=== PATIENT | female | born 1950 | race Caucasian/White ===

== ENCOUNTER 2016-12-31 10:01 | Day surgery (SDC) | payer OTHER ==
--- NOTE | ~2016-12-31 | EGD ---
EGD REPORT [facility] [address] [id number] NAME: NAUN KEY : [birth year] STATUS : REG [facility] [place] PAT#: [id number] AGE: 66 ADM/REG DATE : 12/31/16 MR#: [id number] REPORT SERV DATE: 12/31/16 DICTATED BY: MARÍA ROBLES DATE: 12/31/16 REPORT STATUS : Draft [facility] BY: [facility] DATE: 12/31/16 Endoscopy Center Patient Name: Naun Key Date of : 1950 Attending MD: MARÍA ROBLES MD Procedure Date No Time: 12/31/2016 Procedure: Colonoscopy Indications: Screening for colorectal malignant neoplasm Referring MD: Andrew Lucas Medicines: as per anesthesia Complications: No immediate complications. Procedure: Pre-Anesthesia Assessment: - ASA Grade Assessment: II - A patient with mild systemic disease. After I obtained informed consent, the scope was passed under direct vision. Throughout the procedure, the patient's blood pressure, pulse, and oxygen saturations were monitored continuously. The PCF [id number] was introduced through the anus and advanced to the cecum, identified by appendiceal orifice and ileocecal valve. The colonoscopy was performed without difficulty. The patient tolerated the procedure. The quality of the bowel preparation was adequate to identify polyps. Findings: The perianal and digital rectal examinations were normal. The colon (entire examined portion) appeared normal. Impression: - The entire examined colon is normal. Recommendation: - Repeat colonoscopy in 10 years for surveillance. Procedure Code(s): --- Professional --- 75391, Colonoscopy, flexible, proximal to splenic flexure; diagnostic, with or without collection of specimen(s) by brushing or washing, with or without colon decompression (separate procedure) Diagnosis Code(s): --- Professional --- Z12.11, Encounter for screening for malignant neoplasm of colon CPT copyright 2013 [employer]. All rights reserved. EGD REPORT [facility] [address] [address] NAME: NAUN KEY : [birth year] STATUS : REG [facility]#: [id number] AGE: 66 ADM/REG DATE : 12/31/16 MR#: [id number] REPORT SERV DATE: 12/31/16 DICTATED BY: MARÍA ROBLES. DATE: 12/31/16 REPORT STATUS : Draft TRANSCRIBED BY: [employer] DATE: 12/31/16 The codes documented in this report are preliminary and upon information coder review may be revised to meet current compliance requirements. MARÍA ROBLES MD 12/31/2016 11:49 AM This report has been signed electronically. Number of Addenda: 0 Note Initiated On: 12/31/2016 11:26 AM Scope Withdrawal Time 0 hours 6 minutes 54 seconds [address] [id number]
[~2016-12-31 10:01] MED LIST: ALLEGRA180 PO; CELEBREX2 PO; DIOVAN HCT320 MG/25 PO; FIBER; GYNODIOL0.5 MG PO; LOP25 PO; NORV10 PO; PREM625 PO; PRILO PO; PROZAC PO; ULTRAM50 PO
== END 2016-12-31 23:59 | disposition home or self-care (01) ==
LOC: DMU 10:01
PROVIDERS: Internal Medicine Gastroenterology
PROC: 0DJD8ZZ Inspection of Lower Intestinal Tract, Via Natural or Artificial Opening Endoscopic (ICD-10-PCS; principal; 2016-12-31 11:30)
DX: Z12.11 Encounter for screening for malignant neoplasm of colon (principal); I10 Essential (primary) hypertension; M19.90 Unspecified osteoarthritis, unspecified site; F41.9 Anxiety disorder, unspecified; F32.9 Major depressive disorder, single episode, unspecified; K52.831 Collagenous colitis; K21.9 Gastro-esophageal reflux disease without esophagitis; Z90.710 Acquired absence of both cervix and uterus; Z98.51 Tubal ligation status; Z87.891 Personal history of nicotine dependence; Z79.899 Other long term (current) drug therapy; Z79.891 Long term (current) use of opiate analgesic